=== PATIENT | female | born 1995 | race Two or more races ===

== ENCOUNTER 2018-04-05 10:03 | Emergency (ER) | payer MEDICAID ==
[~2018-04-05] VITALS: Ht 160 cm; Wt 63.5 kg
[2018-04-05 12:24] VITALS: BP 136/108
== END 2018-04-05 12:42 | disposition home or self-care (01) ==
LOC: ER 10:07
DX: H66.41 Suppurative otitis media, unspecified, right ear (principal)

== ENCOUNTER 2020-08-23 12:27 | Inpatient (IN) | payer MEDICAID ==
[~2020-08-23] VITALS: Ht 160 cm; Wt 100.7 kg
[2020-08-23] VITALS (12 sets, daily range): BP systolic 103–133; BP diastolic 47–88
[2020-08-23] MEDS ORDERED: TERBUTALINE SULFATE 1 MG/ML 1ML VIAL SC ONE ×2 (13:57→14:00)
[2020-08-23] MEDS ORDERED: LACTATED RINGER'S 1,000 ML IV ONE ×2 (14:00→15:00)
[2020-08-23] MEDS ORDERED: ceFAZolin 1GM/50ML 50 ML IV ONE (15:00)
[2020-08-23] MEDS ORDERED: METOCLOPRAMIDE HCL 5MG/ml INJ 2ml VIAL IV ONE (15:00)
[2020-08-23] MEDS ORDERED: LACTATED RINGER'S 1,000 ML IV SCH ×2 (15:00→18:30)
[2020-08-23] MEDS ORDERED: SODIUM CITR/CITRIC ACID ORAL SOLN 30 ML PO ONE (15:00)
[2020-08-23 15:42] LABS: Urine Bacteria NONE SEEN /hpf (None Seen); Urine Blood Negative /uL (Negative); Urine Mucus FEW (None Seen); Urine Specific Gravity 1.019 (1.001-1.035); Urine WBC 2 /hpf (0 - 5)
[2020-08-23] MEDS ORDERED: PREN-96 PO (15:43)
[2020-08-23] MEDS ORDERED: MIDAZOLAM HCL 2MG/2ML 2ml VIAL (1mg/ml) ONE (15:47)
[2020-08-23] MEDS ORDERED: MORPHINE SULF PF 2 MG/2 ML SYRG ONE (15:47)
[2020-08-23] MEDS ORDERED: fentaNYL CITRATE 100 MCG/2 ML VL ONE (15:47)
[2020-08-23] MEDS ORDERED: ONDANSETRON HCL 4 MG/2 ML VIAL ONE (15:48)
[2020-08-23] MEDS ORDERED: EPINEPHrine HCL 1 MG/1 ML AMP ONE (15:48)
[2020-08-23] MEDS ORDERED: BUPIVACAINE 0.5% P/F INJ 10 ML VIAL ONE (15:48)
[2020-08-23] MEDS ORDERED: SODIUM CHLORIDE LOCK 10 ML ONE ×2 (15:48→17:50)
[2020-08-23] MEDS ORDERED: oxyTOCIN 10 UNIT/ML 10ML VIAL ONE (15:48)
[2020-08-23 15:50] LABS: Amphetamine Screen, Urine NEGATIVE (NEGATIVE); Barbiturate Scree,Urine NEGATIVE (NEGATIVE); Benzodiazephine Screen, Urine NEGATIVE (NEGATIVE); Cocaine Screen, Urine NEGATIVE (NEGATIVE); Opiate Scree,Urine NEGATIVE (NEGATIVE)
[2020-08-23] MEDS ORDERED: TETRACAINE 1% INJ 2 ML VIAL IJ ONE (15:52)
[2020-08-23 15:59] LABS: Cannabinoid Screen, Urine POSITIVE (NEGATIVE); Phencyclidine Screen, Urine NEGATIVE (NEGATIVE)
[2020-08-23 16:03] LABS: Basophils # (auto) 0 10 ^3/uL (0-0.2); Basophils % (auto) 0.4 % (0.0-2.0); Eosinophils # (auto) 0 10 ^3/uL (0-0.8); Eosinophils % (auto) 0.1 % (0.0-7.0); Hemoglobin 13.6 g/dL (12.2-16.2); Lymphocytes # (auto) 1.8 10 ^3/uL (0.4-5.4); Lymphocytes % (auto) 19.8 % (10.0-50.0); Mean Corpuscular Hemoglobin 29.1 pg (28.0-32.0); Mean Corpuscular Volume 85.5 fL (80.0-100.0); Monocytes # (auto) 0.7 10 ^3/uL (0-1.3); Monocytes % (auto) 7.3 % (0.0-12.0); Neutrophils # (auto) 6.5 10 ^3/uL (1.6-8.6); Neutrophils % (auto) 72.4 % (37.0-80.0); Nucleated Red Blood Cells % 0.1 %; Red Blood Cells 4.68 10^6/uL (4.0-5.20); Red Cell Distribution Width 14.1 % (11.8-14.3); White Blood Cell 8.9 10^3/uL (4.4-10.8)
[2020-08-23 16:21] LABS: Calcium 9.5 mg/dL (8.5-10.1); INR 0.93 (0.9-1.15); Partial Thromboplastin Time 27.3 sec (23.0-31.2); Potassium 3.6 mmol/L (3.5-5.1)
[2020-08-23 16:27] LABS: Albumin 2.8 g/dL (3.4-5.0); BUN/Creatinine Ratio 16.7; Bilirubin, Total 0.2 mg/dL (0.2-1.0); Total Protein 7.1 g/dL (6.4-8.2)
[2020-08-23] MEDS ORDERED: ePHEDrine SULFATE 50 MG/ML AMP ONE (17:50)
[2020-08-23] MEDS ORDERED: HYDROmorphone HCL 2 MG/ML VL IV PRN ×2 (18:30→18:45)
[2020-08-23] MEDS ORDERED: ONDANSETRON HCL 4 MG/2 ML VIAL IV PRN (18:30)
[2020-08-23] MEDS ORDERED: GUM (CHEWING) 1 GUM CHEW CHEW ONE (18:30)
[2020-08-23] MEDS ORDERED: METOCLOPRAMIDE HCL 5MG/ml INJ 2ml VIAL IV PRN (18:45)
[2020-08-23] MEDS ORDERED: KETOROLAC TROMETH 30 MG/ML 1ML VIAL IV ONE (18:45)
[2020-08-23] MEDS ORDERED: diphenhdrAMINE HCL 50 MG/1 ML VL IV PRN (18:45)
[2020-08-23] MEDS ORDERED: NALOXONE HCL 0.4 MG/ML VIAL IV PRN (18:45)
[2020-08-23] MEDS ORDERED: MORPHINE SULFATE 4 MG/ML SYR/VIAL IV PRN (18:45)
[2020-08-24] VITALS (11 sets, daily range): BP systolic 102–137; BP diastolic 46–88
[2020-08-24] MEDS: ceFAZolin 1GM/50ML 50 ML IV SCH ×3 (01:06→18:55)
[2020-08-24 05:07] LABS: RPR Non Reactive (Non Reactive)
[2020-08-24 08:16] LABS: Basophils # (auto) 0 10 ^3/uL (0-0.2); Basophils % (auto) 0.2 % (0.0-2.0); Eosinophils # (auto) 0 10 ^3/uL (0-0.8); Eosinophils % (auto) 0.3 % (0.0-7.0); Hematocrit 32.9 % (36.0-46.0); Hemoglobin 11.1 g/dL (12.2-16.2); Lymphocytes # (auto) 1.1 10 ^3/uL (0.4-5.4); Mean Corpuscular Hemoglobin 28.7 pg (28.0-32.0); Mean Corpuscular Hgb Conc. 33.7 g/dL (32.0-36.0); Mean Corpuscular Volume 85.1 fL (80.0-100.0); Monocytes # (auto) 0.7 10 ^3/uL (0-1.3); Monocytes % (auto) 8.1 % (0.0-12.0); Neutrophils # (auto) 6.7 10 ^3/uL (1.6-8.6); Neutrophils % (auto) 78.4 % (37.0-80.0); Red Blood Cells 3.87 10^6/uL (4.0-5.20); Red Cell Distribution Width 14.2 % (11.8-14.3); White Blood Cell 8.6 10^3/uL (4.4-10.8)
[2020-08-24] MEDS: ACETAMINOPHEN IV 1000 MG/100ML (10MG/ML) IV PRN ×2 (10:07→13:15)
[2020-08-24] MEDS: IBUPROFEN 800 MG TAB PO PRN ×2 (15:49→22:14)
[2020-08-24] MEDS: SIMETHICONE 80 MG CHEWABLE TABLET PO SCH ×2 (18:00→22:14)
[2020-08-24] MEDS ORDERED: ceFAZolin 1GM/50ML 50 ML IV ONE (18:53)
[2020-08-24] MEDS: FERROUS SULFATE 325mg EC TAB PO SCH (22:14)
[2020-08-24] MEDS ORDERED: BISACODYL 10 MG RECT SUPP PR PRN (22:30)
[2020-08-25 02:57] VITALS: BP 128/78
[2020-08-25] MEDS: SIMETHICONE 80 MG CHEWABLE TABLET PO SCH ×4 (05:47→22:15)
[2020-08-25] MEDS: DOCUSATE SOD 100 MG CAP PO SCH ×2 (10:08→22:15)
[2020-08-25] MEDS: FERROUS SULFATE 325mg EC TAB PO SCH ×2 (10:09→22:00)
[2020-08-25] MEDS: IBUPROFEN 800 MG TAB PO PRN ×2 (10:09→17:41)
[2020-08-25 11:00] VITALS: BP 121/72
[2020-08-25 15:00] VITALS: BP 118/58
[2020-08-25 19:22] VITALS: BP 126/77
[2020-08-25 22:42] VITALS: BP 108/61
[2020-08-26 03:00] VITALS: BP 126/79
[2020-08-26] MEDS: IBUPROFEN 800 MG TAB PO PRN (03:18)
[2020-08-26] MEDS: SIMETHICONE 80 MG CHEWABLE TABLET PO SCH (05:38)
[2020-08-26 06:57] VITALS: BP 110/64
[2020-08-26] MEDS: DOCUSATE SOD 100 MG CAP PO SCH (09:54)
[2020-08-26] MEDS: FERROUS SULFATE 325mg EC TAB PO SCH (09:55)
[2020-08-26 10:52] VITALS: BP 137/85
== END 2020-08-26 11:22 | disposition home or self-care (01) | DRG 540 ==
LOC: LDRP 12:27 → OBSVTOIN 14:45 → LDRP 21:09
PROVIDERS: ADMIT Specialist; ATTEND Specialist
PROC: 10D00Z1 Extraction of Products of Conception, Low, Open Approach (ICD-10-PCS; principal; 2020-08-23 16:48)
DX: O34.211 Maternal care for low transverse scar from previous cesarean delivery (principal); O33.9 Maternal care for disproportion, unspecified; O77.0 Labor and delivery complicated by meconium in amniotic fluid; O69.81X0 Labor and delivery complicated by cord around neck, without compression, not applicable or unspecified; O36.63X0 Maternal care for excessive fetal growth, third trimester, not applicable or unspecified; Z3A.38 38 weeks gestation of pregnancy; Z37.0 Single live birth; Z20.822 Contact with and (suspected) exposure to COVID-19
CPT/HCPCS: 36415; 59025; 80053; 80307; 81001; 81002; 85025; 85610; 85730; 86592; 86850; 86900; 86901; 87426; 94760; 96360; 96361; 96366; G0378; J0131; J0171; J0690; J1885; J2250; J2405; J2590; J3490

== ENCOUNTER → 2023-05-15 | Outpatient (CLI) | payer MEDICAID ==
[~2023-05-15] MED LIST: PREN-96 PO
[2023-05-15 10:44] LABS: Basophils # (auto) 0 10 ^3/uL (0-0.2); Basophils % (auto) 0.2 % (0.0-2.0); Eosinophils # (auto) 0 10 ^3/uL (0-0.8); Eosinophils % (auto) 0.7 % (0.0-7.0); Hematocrit 35.2 % (36.0-46.0); Hemoglobin 11.7 g/dL (12.2-16.2); Lymphocytes # (auto) 1.2 10 ^3/uL (0.4-5.4); Lymphocytes % (auto) 19.6 % (10.0-50.0); Mean Corpuscular Hemoglobin 28.4 pg (28.0-32.0); Mean Corpuscular Hgb Conc. 33.2 g/dL (32.0-36.0); Mean Corpuscular Volume 85.4 fL (80.0-100.0); Monocytes # (auto) 0.6 10 ^3/uL (0-1.3); Monocytes % (auto) 9.6 % (0.0-12.0); Neutrophils # (auto) 4.2 10 ^3/uL (1.6-8.6); Neutrophils % (auto) 69.9 % (37.0-80.0); Nucleated Red Blood Cells % 0.1 %; Red Blood Cells 4.12 10^6/uL (4.0-5.20); Red Cell Distribution Width 13.9 % (11.8-14.3)
== END | disposition home or self-care (01) ==
LOC: LAB 10:18
PROVIDERS: ATTEND Obstetrics & Gynecology
DX: O99.810 Abnormal glucose complicating pregnancy (principal); Z3A.00 Weeks of gestation of pregnancy not specified
CPT/HCPCS: 36415; 82951; 83036; 85025

== ENCOUNTER 2023-07-23 04:00 | Inpatient (IN) | payer MEDICAID ==
[2023-07-22 09:54] LABS: Basophils # (auto) 0 10 ^3/uL (0-0.2); Basophils % (auto) 0.3 % (0.0-2.0); Eosinophils # (auto) 0 10 ^3/uL (0-0.8); Eosinophils % (auto) 0.5 % (0.0-7.0); Hemoglobin 12.7 g/dL (12.2-16.2); Lymphocytes # (auto) 1.6 10 ^3/uL (0.4-5.4); Lymphocytes % (auto) 20.4 % (10.0-50.0); Mean Corpuscular Hemoglobin 27.7 pg (28.0-32.0); Mean Corpuscular Hgb Conc. 32.5 g/dL (32.0-36.0); Mean Corpuscular Volume 85.3 fL (80.0-100.0); Monocytes # (auto) 0.6 10 ^3/uL (0-1.3); Monocytes % (auto) 7.7 % (0.0-12.0); Neutrophils # (auto) 5.6 10 ^3/uL (1.6-8.6); Neutrophils % (auto) 71.1 % (37.0-80.0); Red Blood Cells 4.57 10^6/uL (4.0-5.20); Red Cell Distribution Width 14.8 % (11.8-14.3); White Blood Cell 7.8 10^3/uL (4.4-10.8)
[2023-07-22 10:04] LABS: Urine Bacteria NONE SEEN /hpf (None Seen); Urine Blood Negative /uL (Negative); Urine Clarity HAZY (Clear); Urine Mucus FEW (None Seen); Urine Protein, UAD Negative (Negative); Urine Specific Gravity 1.013 (1.001-1.035); Urine Urobilinogen Normal (Negative); Urine WBC 1 /hpf (0 - 5)
[2023-07-22 10:06] LABS: INR 0.94 (0.9-1.15); Partial Thromboplastin Time 29.1 SEC (24.5-34.5); Prothrombin Time 9.9 sec (9.3-11.8)
[2023-07-22 10:15] LABS: Amphetamine Screen, Urine Neg (NEGATIVE); Barbiturate Scree,Urine Neg (NEGATIVE); Benzodiazephine Screen, Urine Neg (NEGATIVE); Cannabinoid Screen, Urine Neg (NEGATIVE); Cocaine Screen, Urine Neg (NEGATIVE); Opiate Scree,Urine Neg (NEGATIVE); Phencyclidine Screen, Urine Neg (NEGATIVE)
[2023-07-22 10:17] LABS: Urine Color Straw (Yellow)
[2023-07-22 10:20] LABS: Alanine Aminotransferase 10 U/L (7-40); Albumin 4.1 g/dL (3.2-4.8); Alkaline Phosphatase 128 U/L (46-116); Anion Gap 9 (5-15); Aspartate Aminotransferase 19 U/L (13-40); Bilirubin, Total 0.2 mg/dL (0.2-1.0); Calcium 9.6 mg/dL (8.5-10.1); Carbon Dioxide 23 mmol/L (20-30); Chloride 105 mmol/L (98-107); Glucose 86 mg/dL (74-106); Potassium 3.7 mmol/L (3.5-5.1); Sodium 137 mmol/L (136-145); Total Protein 6.8 g/dL (5.7-8.2)
[2023-07-22 10:34] LABS: BUN/Creatinine Ratio 10.9 (10.0-20.0); Blood Urea Nitrogen < 5 mg/dL (9-23)
[~2023-07-23] VITALS: Ht 162.6 cm; Wt 98.0 kg
[2023-07-23] VITALS (16 sets, daily range): BP systolic 98–135; BP diastolic 41–89; PULSE 94–124; RESP 13–18; TEMP 98.4–98.7; O2SAT 93–98
[2023-07-23] MEDS ORDERED: ceFAZolin 2 GM/D5W100ml 100 ML IV ONE ×2 (04:15→06:52)
[2023-07-23] MEDS ORDERED: LACTATED RINGER'S 1,000 ML IV ONE (04:15)
[2023-07-23] MEDS: LACTATED RINGER'S 1,000 ML IV SCH ×2 (05:21→15:43)
[2023-07-23] MEDS ORDERED: HYDR-4902 PO (07:01)
[2023-07-23] MEDS ORDERED: DOCU-94 PO (07:01)
[2023-07-23] MEDS ORDERED: MORPHINE SULF PF 5 MG/10 ML VIAL ONE (07:04)
[2023-07-23 07:07] LABS: RPR Non Reactive (Non Reactive)
[2023-07-23] MEDS ORDERED: LACT. RINGERS/OXYTOCIN 20UNITS 1,000 ML IV ONE (07:15)
[2023-07-23] MEDS ORDERED: ceFAZolin 1GM/50ML 50 ML IV SCH (07:15)
[2023-07-23] MEDS ORDERED: ONDANSETRON HCL 4 MG/2 ML VIAL IV PRN ×2 (07:15→08:45)
[2023-07-23] MEDS ORDERED: PHENYLEPHRINE HCL 10 MG/ML VL ONE (07:26)
[2023-07-23] MEDS ORDERED: ePHEDrine SULFATE 50 MG/ML AMP ONE (07:26)
[2023-07-23] MEDS ORDERED: ONDANSETRON HCL 4 MG/2 ML VIAL ONE (07:26)
[2023-07-23] MEDS ORDERED: oxyTOCIN 10 UNIT/ML 10ML VIAL ONE (07:35)
[2023-07-23] MEDS ORDERED: HYDROmorphone HCL 2 MG/ML VL/or syr IV PRN (08:45)
[2023-07-23] MEDS ORDERED: MEPERIDINE HCL (25 MG/ML) 1ML VIAL IV PRN (08:45)
[2023-07-23] MEDS ORDERED: ACETAMINOPHEN 650 mg PER 20.3 mL UD ONE (11:35)
[2023-07-23] MEDS ORDERED: ACETAMINOPHEN IV 1000 MG/100ML (10MG/ML) IV PRN (12:00)
[2023-07-23] MEDS: ceFAZolin 1GM/50ML 50 ML IV SCH ×2 (15:33→23:34)
[2023-07-23 21:02] LABS: Basophils # (auto) 0 10 ^3/uL (0-0.2); Basophils % (auto) 0.3 % (0.0-2.0); Eosinophils # (auto) 0 10 ^3/uL (0-0.8); Eosinophils % (auto) 0.4 % (0.0-7.0); Hematocrit 36.3 % (36.0-46.0); Hemoglobin 11.9 g/dL (12.2-16.2); Lymphocytes # (auto) 0.6 10 ^3/uL (0.4-5.4); Lymphocytes % (auto) 6.6 % (10.0-50.0); Mean Corpuscular Hgb Conc. 32.9 g/dL (32.0-36.0); Mean Corpuscular Volume 85.1 fL (80.0-100.0); Monocytes # (auto) 0.8 10 ^3/uL (0-1.3); Monocytes % (auto) 7.8 % (0.0-12.0); Neutrophils # (auto) 8.4 10 ^3/uL (1.6-8.6); Neutrophils % (auto) 84.9 % (37.0-80.0); Red Blood Cells 4.26 10^6/uL (4.0-5.20); Red Cell Distribution Width 14.7 % (11.8-14.3); White Blood Cell 9.8 10^3/uL (4.4-10.8)
[2023-07-24] VITALS (13 sets, daily range): BP systolic 101–133; BP diastolic 52–81; PULSE 85–102; RESP 16–18; TEMP 97.9–103.2; O2SAT 96–100
[2023-07-24 05:34] LABS: Basophils # (auto) 0 10 ^3/uL (0-0.2); Basophils % (auto) 0.1 % (0.0-2.0); Eosinophils # (auto) 0.1 10 ^3/uL (0-0.8); Hematocrit 33.1 % (36.0-46.0); Lymphocytes # (auto) 0.9 10 ^3/uL (0.4-5.4); Lymphocytes % (auto) 8.9 % (10.0-50.0); Mean Corpuscular Hgb Conc. 33.1 g/dL (32.0-36.0); Mean Corpuscular Volume 84.5 fL (80.0-100.0); Monocytes # (auto) 0.8 10 ^3/uL (0-1.3); Monocytes % (auto) 7.8 % (0.0-12.0); Neutrophils # (auto) 8.4 10 ^3/uL (1.6-8.6); Neutrophils % (auto) 82.2 % (37.0-80.0); Red Blood Cells 3.91 10^6/uL (4.0-5.20); Red Cell Distribution Width 14.2 % (11.8-14.3); White Blood Cell 10.2 10^3/uL (4.4-10.8)
[2023-07-24] MEDS ORDERED: PHISODERM TOP SOLN 240ML BTL TOP PRN (06:00)
[2023-07-24] MEDS: ceFAZolin 1GM/50ML 50 ML IV SCH (06:59)
[2023-07-24] MEDS ORDERED: IBUPROFEN 800 MG TAB PO PRN (08:00)
[2023-07-24] MEDS ORDERED: BISACODYL 10 MG RECT SUPP PR PRN (08:00)
[2023-07-24] MEDS ORDERED: HYDROcodone-ACET 5/325MG TAB PO PRN (08:00)
[2023-07-24] MEDS: HYDROcodone-ACET 5/325MG TAB PO PRN ×4 (08:47→23:18)
[2023-07-24] MEDS: DOCUSATE SOD 100 MG CAP PO SCH ×2 (09:48→22:05)
[2023-07-24] MEDS: DOCUSATE CALCIUM 240 MG CAP PO SCH (09:48)
[2023-07-24] MEDS: SIMETHICONE 80 MG CHEWABLE TABLET PO SCH ×3 (12:12→22:05)
[2023-07-24 19:06] LABS: Treponema pallidum Ab (FTA-Ab) Non Reactive (Non Reactive)
[2023-07-25 03:00] VITALS: BP 123/72; PULSE 97; RESP 16; TEMP 98.2; O2SAT 99
[2023-07-25] MEDS ORDERED: IBUP-1455 PO (03:50)
[2023-07-25 07:13] VITALS: BP 97/60; PULSE 88; RESP 16; TEMP 98.1; O2SAT 98
[2023-07-25] MEDS: SIMETHICONE 80 MG CHEWABLE TABLET PO SCH ×2 (07:18→12:19)
[2023-07-25] MEDS: DOCUSATE SOD 100 MG CAP PO SCH (09:41)
[2023-07-25] MEDS: DOCUSATE CALCIUM 240 MG CAP PO SCH (09:41)
[2023-07-25 11:00] VITALS: BP 113/67; PULSE 85; RESP 18; TEMP 98.1; O2SAT 100
== END 2023-07-25 12:20 | disposition home or self-care (01) | DRG 539 ==
LOC: LDRP 04:00
PROVIDERS: ADMIT Obstetrics & Gynecology; ATTEND Obstetrics & Gynecology
PROC: 10D00Z1 Extraction of Products of Conception, Low, Open Approach (ICD-10-PCS; 2023-07-23)
PROC: 0UB70ZZ Excision of Bilateral Fallopian Tubes, Open Approach (ICD-10-PCS; principal; 2023-07-23 07:09)
DX: O34.211 Maternal care for low transverse scar from previous cesarean delivery (principal); O69.81X0 Labor and delivery complicated by cord around neck, without compression, not applicable or unspecified; Z37.0 Single live birth; Z30.2 Encounter for sterilization; Z3A.38 38 weeks gestation of pregnancy
CPT/HCPCS: 36415; 59025; 80053; 80307; 81001; 81002; 85025; 85610; 85730; 86592; 86850; 86900; 86901; 94760; 96360; 96361; 96365; 96366; G0378; J0131; J0690; J2405; J2590

== ENCOUNTER 2024-07-24 17:29 | Emergency (ER) | payer MEDICAID ==
[~2024-07-24] VITALS: Ht 160 cm; Wt 89.8 kg
[~2024-07-24 17:29] MED LIST changes: +DOCU-94 PO; +HYDR-4902 PO; +IBUP-1455 PO
[2024-07-24] MEDS: LIDOCAINE 1% HCL (LOCAL ANESTH.) INJ 20ML MDV ID ONE (18:11)
--- NOTE | 2024-07-24 18:46 | ED.PDOC ---
History of Present Illness HPI Comments 29F presents to the Er w/ no prior Hx associated to the c/c of an abscess. Pt reports on having a Bartholin abscess on the right external genitalia for the past 3 days. Pt states that it is painful. Denies chills, fever, N/V/D, SOB, CP or other associated symptom's, modifiers, or recent injuries or sick contact at this time. Chief Complaint: Abscess Time Seen by MD: 18:00 Reviewed Notes: Nurses Notes, Medications, Allergies Allergies: Coded Allergies: No Known Drug Allergy (Verified Allergy, Unknown, 04/05/18) Home Meds Active Scripts Ibuprofen Micronized (Ibuprofen) 800 Mg Tab, 800 MG PO Q8HP PRN for 30 Days, #90 TAB Prov:HENRIQUE DE LOS SANTOS CNM 07/25/23 Hydrocodone-Acetaminophen (Hydrocodone Bitartrate/AC 5-325 mg) 1 Tab Tab, 1 TAB PO Q6HPRN PRN for 7 Days, #28 TAB Prov:ROSEMARIE SPARKS 07/23/23 Docusate Sodium (Colace) 100 Mg Cap, 1 CAP PO BID, #60 CAP 2 Refills Prov:ROSEMARIE SPARKS DO 07/23/23 Reported Medications Vit W/ Ferrous Fumara ( One Daily) Daily Tab, 1 TAB PO DAILY, #90 TAB 3 Refills 08/23/20 Information Source: Patient Mode of Arrival: Ambulatory Severity: Moderate Timing: Days Duration: Since onset, Days Prehospital treatment: None Past Medical History PAST MEDICAL HISTORY: Denies Surgical History: Denies all surgeries OPERATIONS MGR History: No Pertinent OPERATIONS MGR History Family History Family History: Reviewed,noncontributory to illness, Unknown Social History Smoker: Non-Smoker Alcohol: Denies ETOH Use Drugs: Denies Drug Use Lives In: Home Constitutional: reports: others (abcess); denies: chills, diaphoresis, fatigue, fever, malaise, sweats, weakness EENTM: denies: blurred vision, double vision, ear bleeding, ear discharge, ear drainage, ear pain, ear ringing, eye pain, eye redness, hearing loss, mouth pain, mouth swelling, nasal discharge, nose bleeding, nose congestion, nose pain, photophobia, tearing, throat pain, throat swelling, voice changes, others Respiratory: denies: cough, hemoptysis, orthopnea, SOB at rest, shortness of breath, SOB with excertion, stridor, wheezing, others Cardiovascular: denies: chest pain, dizzy spells, diaphoresis, Dyspnea on exertion, edema, irregular heart beat, left arm pain, lightheadedness, palpitations, PND, syncope, others Gastrointestinal: denies: abdomen distended, abdominal pain, blood streaked bowels, constipated, diarrhea, dysphagia, difficulty swallowing, hematemesis, melena, nausea, poor appetite, poor fluid intake, rectal bleeding, rectal pain, vomiting, others Genitourinary: denies: abnormal vagina bleeding, burning, dyspareunia, dysuria, flank pain, frequency, hematuria, incontinence, pain, , vagina discharge, urgency, others Neurological: denies: dizziness, fainting, headache, left sided numbness, left sided weakness, numbness, paresthesia, pre-existing deficit, right sided numbness, right sided weakness, seizure, speech problems, tingling, tremors, weakness, others Musculoskeletal: denies: back pain, gout, joint pain, joint swelling, muscle pain, muscle stiffness, neck pain, others Integumetry: denies: bruises, change in color, change in hair/nails, dryness, laceration, lesions, lumps, rash, wounds, others Allergic/Immunocompromised: denies: Difficulty Healing, Frequent Infections, Hives, Itching, others Hematologic/Lymphatic: denies: anemia, blood clots, easy bleeding, easy bruising, swollen glands, others Endocrine: denies: excessive hunger, excessive sweating, excessive thirst, excessive urination, flushing, intolerance to cold, intolerance to heat, unexplained weight gain, unexplained weight loss, others Psychiatric: denies: anxiety, bipolar disorder, depression, hopeless, panic disorder, schizophrenia, sleepless, suicidal, others All Other Systems: Reviewed and Negative Physical Exam General Appearance: No Apparent Distress, Normal HEENT: Normal ENT Inspection, Pharynx Normal, TMs Normal Neck: Full Range of Motion, Non-Tender, Normal, Normal Inspection Respiratory: Chest Non-Tender, Lungs Clear, No Accessory Muscle Use, No Respiratory Distress, Normal Breath Sounds Cardiovascular: No Edema, No JVD, No Murmur, No Gallop, Normal Peripheral Pulses, Regular Rate/Rhythm Breast Exam: Deferred Gastrointestinal: No Organomegaly, Non Tender, No Pulsatile Mass, Normal Bowel Sounds, Soft Genitalia: Deferred Pelvic: Deferred Rectal: Deferred Extremities: No calf tenderness, Normal capillary refill, Normal inspection, Normal range of motion, Non-tender, No pedal edema Musculoskeletal : Apperance: Normal Neurologic: Alert, software development engineer II-XII nml as Tested, No Motor Deficits, Normal Affect, Normal Mood, No Sensory Deficits Cerebellar Function: Normal Reflexes: Normal Skin: Dry, Normal Color, Warm Lymphatic: No Adenopathy Was a procedure done? Was a procedure done?: Yes Sedation Sedation?: No Informed consent obtained: Yes Incision and Drainage Incision and Drainage: Abscess Anesthetic: Lidocaine Preparation: Betadine, Saline Incision and Wound: Pus Informed consent obtained: Yes Risks/benefits/alt described: Yes Notes large amount of pus is removed. pt felt much better afterward. 1/4 inch iodoform packing used to pack the wound, after the cavity loculations were opened by blunt instrument. pt tolerated procedure well. there are no surrounding redness, so antibiotic will not be necessary. pt will return in 2 days for recheck and packing removal Differential Dx Considerations may include: Bartholin's cyst, Bartholin's abscess, hydradenitis cyst/abscess X-Ray, Labs, Meds, VS Vital Signs Date Time Temp Pulse Resp B/P (MAP) Pulse Ox O2 Delivery O2 Flow Rate FiO2 07/24/24 17:55 98.6 92 20 120/72 (88) 96 Time of 1ST Reevaluation: 18:30 Reevaluation 1ST: Unchanged Patient Education/Counseling: Diagnosis, Treatment, Prognosis Family Education/Counseling: No Family Present Additional Information - I reviewed the following notes from patient's past medical encounters:04/05/18 - The following tests were ordered, and results were reviewed by me: PHA - I discussed treatments and results with medical personnel and: (consultants, family) Departure 1 Departure Time of Disposition: 19:02 Impression: Primary Impression: Hydradenitis Additional Impression: Abscess Disposition: 01 HOME / SELF CARE / HOMELESS Condition: Good e-Prescriptions Ibuprofen Micronized (MOTRIN TABLET) 600 Mg Tb 600 MG PO TID PRN, #40 TAB *Black box warning-NSAIDS can increase risk of FL & hypertension, GI irritation, ulceration, bleed, perferation. Do not use post cardiac surgery. Use short duration/lowest effective dose. Prov: LINDSEY PACE MD 07/24/24 Hydrocodone-Acetaminophen (Hydrocodone Bitartrate/AC 5-325 mg) 1 Tab Tab 1 TAB PO BID PRN for 1 Day, #2 TAB Prov: LINDSEY PACE MD 07/24/24 Discharged With: Self Critical Care Note Critical Care Time?: No Stability Stability form required: No I personally scribed for LINDSEY PACE MD ([email or web address]) on 07/24/24 at 18:46. Electronically submitted by Giovanny Aranda ([email or web address]). LINDSEY PACE MD Jul 24, 2024 18:46
[2024-07-24] MEDS ORDERED: IBU600T PO (19:04)
[2024-07-24] MEDS ORDERED: HYDR-4902 PO (19:04)
[2024-07-24 19:15] VITALS: BP 134/77; PULSE 76; RESP 19; TEMP 98.6; O2SAT 100
== END 2024-07-24 19:17 | disposition home or self-care (01) ==
LOC: ER 17:29
DX: L73.2 Hidradenitis suppurativa (principal); N75.1 Abscess of Bartholin's gland; Z79.899 Other long term (current) drug therapy
CPT/HCPCS: 56420; 99284; J2003

== ENCOUNTER 2024-07-28 14:41 | Emergency (ER) | payer MEDICAID ==
[~2024-07-28] VITALS: Ht 160 cm; Wt 79.5 kg
[~2024-07-28 14:41] MED LIST changes: +IBU600T PO
[2024-07-28] MEDS ORDERED: CEPH500C PO (16:05)
--- NOTE | 2024-07-28 16:05 | ED.PDOC ---
History of Present Illness(SKN HPI Comments 29-year-old female presents for wound check. No other complaint Chief Complaint: Wound Check Time Seen by MD: 15:11 History of Present Illness: Nurses Notes, Medications, Allergies Allergies: Coded Allergies: No Known Drug Allergy (Verified Allergy, Unknown, 04/05/18) Home Meds Active Scripts Ibuprofen Micronized (MOTRIN TABLET) 600 Mg Tb, 600 MG PO TID PRN, #40 TAB *Black box warning-NSAIDS can increase risk of CO & hypertension, GI irritation, ulceration, bleed, perferation. Do not use post cardiac surgery. Use short duration/lowest effective dose. Prov:LINDSEY PACE MD 07/24/24 Hydrocodone-Acetaminophen (Hydrocodone Bitartrate/AC 5-325 mg) 1 Tab Tab, 1 TAB PO BID PRN for 1 Day, #2 TAB Prov:LINDSEY PACE MD 07/24/24 Ibuprofen Micronized (Ibuprofen) 800 Mg Tab, 800 MG PO Q8HP PRN for 30 Days, #90 TAB Prov:HENRIQUE DE LOS SANTOS CNM 07/25/23 Hydrocodone-Acetaminophen (Hydrocodone Bitartrate/AC 5-325 mg) 1 Tab Tab, 1 TAB PO Q6HPRN PRN for 7 Days, #28 TAB Prov:ROSEMARIE SPARKS 07/23/23 Docusate Sodium (Colace) 100 Mg Cap, 1 CAP PO BID, #60 CAP 2 Refills Prov:ROSEMARIE SPARKS 07/23/23 Reported Medications Vit W/ Ferrous Fumara ( One Daily) Daily Tab, 1 TAB PO DAILY, #90 TAB 3 Refills 08/23/20 Information Source: Patient Mode of Arrival: Ambulatory Past Medical History PAST MEDICAL HISTORY: Denies Surgical History: Denies all surgeries FLIGHT CREW ORDNANCEMAN History: No Pertinent FLIGHT CREW ORDNANCEMAN History Family History Family History: Reviewed,noncontributory to illness, Unknown Social History Smoker: Non-Smoker Alcohol: Denies ETOH Use Drugs: Denies Drug Use Lives In: Home All Other Systems: Reviewed and Negative (Per HPI) Physical Exam General Appearance: No Apparent Distress, Normal HEENT: Normal ENT Inspection, Pharynx Normal, TMs Normal Neck: Full Range of Motion, Non-Tender, Normal, Normal Inspection Respiratory: Chest Non-Tender, Lungs Clear, No Accessory Muscle Use, No Respiratory Distress, Normal Breath Sounds Cardiovascular: No Edema, No JVD, No Murmur, No Gallop, Normal Peripheral Pulses, Regular Rate/Rhythm Breast Exam: Deferred Gastrointestinal: No Organomegaly, Non Tender, No Pulsatile Mass, Normal Bowel Sounds, Soft Genitalia: Deferred Pelvic: Deferred Rectal: Deferred Extremities: No calf tenderness, Normal capillary refill, Normal inspection, Normal range of motion, Non-tender, No pedal edema Musculoskeletal : Apperance: Normal Neurologic: Alert, chauffeur airport limousine II-XII nml as Tested, No Motor Deficits, Normal Affect, Normal Mood, No Sensory Deficits Cerebellar Function: Normal Reflexes: Normal Skin: Dry, Normal Color, Warm Lymphatic: No Adenopathy Was a procedure done? Was a procedure done?: No Images 1 - Incision and drainage. Mild surrounding erythema. No visible excoriation no visible drainage. No signs of infection. applications tester in room: [employer] Differential Diagnosis (INTG) Differential Diagnosis: Other X-Ray, Labs, Meds, VS Vital Signs Date Time Temp Pulse Resp B/P (MAP) Pulse Ox O2 Delivery O2 Flow Rate FiO2 07/28/24 14:49 97.8 102 20 141/84 (103) 100 07/28/24 14:49 97.8 102 20 141/84 (103) 100 97.8 X-Ray, Labs, Meds, VS Comment Empiric tx Patient is stable for discharge at this time. External notes reviewed. All diagnostic findings, discharge care, education and instructions provided Follow-up with PCP in 2 to 3 days Patient verbalized understanding and agreed to treatment plan Vital signs stable, afebrile, no acute distress noted Patient ambulatory with strong steady gait Advised to return precautions for any new or worsening symptoms, return to ER immediately for re-evaluation Patient is aware that the purpose of this visit was for an acute medical emergency requiring emergent stabilization. Chronic conditions, including malignancies have not been ruled out. Patient is instructed to follow up with PCP as directed and discharge instructions for continued care and workup. If unable to arrange follow-up, patient is to return to the emergency department for reassessment. Patient (parent or legal guardian if applicable) was given verbal and written discharge instructions and acknowledges understanding. Time of 1ST Reevaluation: 16:04 Reevaluation 1ST: Improved Patient Education/Counseling: Diagnosis, Treatment Family Education/Counseling: Diagnosis, Treatment Departure 1 Departure Time of Disposition: 16:04 Impression: Primary Impression: Encounter for wound re-check Disposition: HOME / SELF CARE / HOMELESS Condition: Stable e-Prescriptions Cephalexin Monohydrate (Cephalexin) 500 Mg Cap 1 CAP PO QID for 5 Days, #20 CAP 0 Refills Prov: CARLOS SAUCEDA NP 07/28/24 Discharged With: Self Critical Care Note Critical Care Time?: No Stability Stability form required: No Heart Score Heart Score: Heart Score Response (Comments) Value History N/A 0 EKG N/A 0 Age N/A 0 Risk Factors N/A 0 Troponin N/A 0 Total 0 CARLOS SAUCEDA NP Jul 28, 2024 16:05
[2024-07-28 16:14] VITALS: BP 140/80; PULSE 100; RESP 100; TEMP 97.8; O2SAT 100
== END 2024-07-28 16:20 | disposition home or self-care (01) ==
LOC: ER 14:41
DX: Z48.00 Encounter for change or removal of nonsurgical wound dressing (principal)

== ENCOUNTER 2025-01-20 16:28 | Emergency (ER) | payer MEDICAID ==
[~2025-01-20] VITALS: Ht 160 cm; Wt 83.2 kg
[~2025-01-20 16:28] MED LIST changes: +CEPH500C PO
--- NOTE | 2025-01-20 17:29 | ED.PDOC ---
Eye-HPI HPI Comments This is a 29-year-old female presenting to the ED with a chief complaint of left eyelid swelling. Patient reports that she has been experiencing left eyelid swelling, pain, and redness for the past two days Patient states that her pain worsens with blinking. Patient notes that she has been applying a warm washcloth to her eye with a little relief noted. Denies foreign body Denies vision changes Denies eye discharge Denies hearing changes, nausea, vomiting Denies difficulty keeping eye open, feeling of something stuck in the eye, sensitivity to light Chief Complaint: Eye Problem Time Seen by MD: 17:10 Primary Care Provider: NONE Reviewed Notes: Nurses Notes, Medications, Allergies Allergies: Coded Allergies: No Known Drug Allergy (Verified Allergy, Unknown, 04/05/18) Home Meds Active Scripts Polyethylene Glycol-Propylene (Lubricating Eye Drops 0.4-0.3 %) 1 Tate Tate, 1 TATE OP UD for 7 Days, #5 ML 0 Refills Prov:CARLOS SAUCEDA NP 01/20/25 Ibuprofen (Ibuprofen) 600 Mg Tab, 1 TAB PO TID for 14 Days, #42 TAB 0 Refills Prov:CARLOS SAUCEDA NP 01/20/25 Cephalexin Monohydrate (Cephalexin) 500 Mg Cap, 1 CAP PO QID for 5 Days, #20 CAP 0 Refills Prov:CARLOS SAUCEDA NP 07/28/24 Ibuprofen Micronized (MOTRIN TABLET) 600 Mg Tb, 600 MG PO TID PRN, #40 TAB *Black box warning-NSAIDS can increase risk of FL & hypertension, GI irritation, ulceration, bleed, perferation. Do not use post cardiac surgery. Use short duration/lowest effective dose. Prov:LINDSEY PACE MD 07/24/24 Hydrocodone-Acetaminophen (Hydrocodone Bitartrate/AC 5-325 mg) 1 Tab Tab, 1 TAB PO BID PRN for 1 Day, #2 TAB Prov:LINDSEY PACE MD 07/24/24 Ibuprofen Micronized (Ibuprofen) 800 Mg Tab, 800 MG PO Q8HP PRN for 30 Days, #90 TAB Prov:HENRIQUE DE LOS SANTOS CNM 07/25/23 Hydrocodone-Acetaminophen (Hydrocodone Bitartrate/AC 5-325 mg) 1 Tab Tab, 1 TAB PO Q6HPRN PRN for 7 Days, #28 TAB Prov:ROSEMARIE SPARKS DO 07/23/23 Docusate Sodium (Colace) 100 Mg Cap, 1 CAP PO BID, #60 CAP 2 Refills Prov:ROSEMARIE SPARKS DO 07/23/23 Reported Medications Vit W/ Ferrous Fumara ( One Daily) Daily Tab, 1 TAB PO DAILY, #90 TAB 3 Refills 08/23/20 Mode of Arrival: Ambulatory Timing: Days Duration: Since onset Prehospital treatment: None Quality: Pain Eye Location: Left Lids: Red, Swelling, Tender Conjunctiva: Normal Cornea: Normal Pupils: Normal EOM: Normal Fundus: Normal Anterior chamber: Normal Onset: Spontaneous Throat Exposed to: None History of: None Past Medical History PAST MEDICAL HISTORY: Denies Surgical History: BIG 6 DEALER History: No Pertinent BIG 6 DEALER History Family History Family History: Reviewed,noncontributory to illness, Unknown Social History Smoker: Non-Smoker Alcohol: Denies ETOH Use Drugs: Denies Drug Use Lives In: Home Constitutional: denies: chills, diaphoresis, fatigue, fever, malaise, sweats, weakness, others EENTM: reports: others (Eye lid pain and swelling); denies: blurred vision, double vision, ear bleeding, ear discharge, ear drainage, ear pain, ear ringing, eye pain, eye redness, hearing loss, mouth pain, mouth swelling, nasal discharge, nose bleeding, nose congestion, nose pain, photophobia, tearing, throat pain, throat swelling, voice changes Respiratory: denies: cough, hemoptysis, orthopnea, SOB at rest, shortness of breath, SOB with excertion, stridor, wheezing, others Cardiovascular: denies: chest pain, dizzy spells, diaphoresis, Dyspnea on exertion, edema, irregular heart beat, left arm pain, lightheadedness, palpitations, PND, syncope, others Gastrointestinal: denies: abdomen distended, abdominal pain, blood streaked bowels, constipated, diarrhea, dysphagia, difficulty swallowing, hematemesis, melena, nausea, poor appetite, poor fluid intake, rectal bleeding, rectal pain, vomiting, others Genitourinary: denies: abnormal vagina bleeding, burning, dyspareunia, dysuria, flank pain, frequency, hematuria, incontinence, pain, , vagina discharge, urgency, others Neurological: denies: dizziness, fainting, headache, left sided numbness, left sided weakness, numbness, paresthesia, pre-existing deficit, right sided numbness, right sided weakness, seizure, speech problems, tingling, tremors, w eakness, others Musculoskeletal: denies: back pain, gout, joint pain, joint swelling, muscle pain, muscle stiffness, neck pain, others Integumetry: denies: bruises, change in color, change in hair/nails, dryness, laceration, lesions, lumps, rash, wounds, others Allergic/Immunocompromised: denies: Difficulty Healing, Frequent Infections, Hives, Itching, others Hematologic/Lymphatic: denies: anemia, blood clots, easy bleeding, easy bruising, swollen glands, others Endocrine: denies: excessive hunger, excessive sweating, excessive thirst, excessive urination, flushing, intolerance to cold, intolerance to heat, unexplained weight gain, unexplained weight loss, others Psychiatric: denies: anxiety, bipolar disorder, depression, hopeless, panic disorder, schizophrenia, sleepless, suicidal, others All Other Systems: Reviewed and Negative Physical Exam General Appearance: No Apparent Distress, Normal HEENT: Pharynx Normal, TMs Normal, Other (No conjunctival injection, sclera clear, EOM intact, no foreign body viualized with upper and lower lid aversion. Noticeable hordeolum to the left upper eyelid. ) Neck: Full Range of Motion, Non-Tender, Normal, Normal Inspection Respiratory: Chest Non-Tender, Lungs Clear, No Accessory Muscle Use, No Respiratory Distress, Normal Breath Sounds Cardiovascular: No Edema, No JVD, No Murmur, No Gallop, Normal Peripheral Pulses, Regular Rate/Rhythm Breast Exam: Deferred Gastrointestinal: No Organomegaly, Non Tender, No Pulsatile Mass, Normal Bowel Sounds, Soft Genitalia: Deferred Pelvic: Deferred Rectal: Deferred Extremities: No calf tenderness, Normal capillary refill, Normal inspection, No rmal range of motion, Non-tender, No pedal edema Musculoskeletal : Apperance: Normal Neurologic: Alert, date puller II-XII nml as Tested, No Motor Deficits, Normal Affect, Normal Mood, No Sensory Deficits Cerebellar Function: Normal Reflexes: Normal Skin: Dry, Normal Color, Warm Lymphatic: No Adenopathy Was a procedure done? Was a procedure done?: No EENT DIFF Eye: Allergic, Bacterial, Chlamydial, Hordeolum (stye) X-Ray, Labs, Meds, VS Vital Signs Date Time Temp Pulse Resp B/P (MAP) Pulse Ox O2 Delivery O2 Flow Rate FiO2 01/20/25 17:44 99.5 75 16 132/88 (103) 99 99.5 01/20/25 17:44 75 16 99 Room Air 01/20/25 16:57 99.9 72 16 137/87 (104) 97 99.9 X-Ray, Labs, Meds, VS Comment Patient arrives alert and oriented, ABC's intact, afebrile, vital signs stable, saturating well in room air + Unilateral lid swelling Based on H&P and exam, this patient appears to be low risk for emergent causes of lid swelling such as orbital cellulitis, chalazion, exophthalmos, ptosis or lacrimal tumor. Rx: Warm compresses x15 min QID, NSAIDs Additional MDM Review of External, Non-ED records: External records reviewed. Discussion with independent historian (EMS, family) history obtained from the patient/parents (if applicable) at bedside Chronic conditions affecting care: None Social determinants of health affecting care: None Consideration of admission (observation or admission): I considered escalation of care to admission for this patient, however given the reassuring workup, the patient is safe for outpatient management. Time of 1ST Reevaluation: 17:20 Reevaluation 1ST: Unchanged Patient Education/Counseling: Diagnosis, Treatment Family Education/Counseling: No Family Present Departure 1 Departure Time of Disposition: 17:51 Impression: Primary Impression: Stye Qualified Codes: H00.014 - Hordeolum externum left upper eyelid Disposition: 01 HOME / SELF CARE / HOMELESS Condition: Stable e-Prescriptions Polyethylene Glycol-Propylene (Lubricating Eye Drops 0.4-0.3 %) 1 Tate Tate 1 TATE OP UD for 7 Days, #5 ML 0 Refills Prov: CARLOS SAUCEDA HOLIDAY DETECTOR OPERATOR 01/20/25 Ibuprofen (Ibuprofen) 600 Mg Tab 1 TAB PO TID for 14 Days, #42 TAB 0 Refills Prov: CARLOS SAUCEDA HOLIDAY DETECTOR OPERATOR 01/20/25 Critical Care Note Critical Care Time?: No Stability Stability form required: No Heart Score Heart Score: Heart Score Response (Comments) Value History N/A 0 EKG N/A 0 Age N/A 0 Risk Factors N/A 0 Troponin N/A 0 Total 0 I personally scribed for CARLOS SAUCEDA NP ([email or web address]) on 01/20/25 at 17:29. Electronically submitted by Washington Sharpe ([email or web address]). CARLOS SAUCEDA NP January 20, 2025 17:29
[2025-01-20 17:44] VITALS: BP 132/88; PULSE 75; RESP 16; TEMP 99.5; O2SAT 99
[2025-01-20] MEDS ORDERED: POLY1DRO14 OP (17:52)
[2025-01-20] MEDS ORDERED: IBUP-1454 PO (17:52)
== END 2025-01-20 17:57 | disposition home or self-care (01) ==
LOC: ER 16:28
DX: H00.014 Hordeolum externum left upper eyelid (principal); Z79.1 Long term (current) use of non-steroidal anti-inflammatories (NSAID); Z79.899 Other long term (current) drug therapy; Z98.890 Other specified postprocedural states